=== PATIENT | male | born 1990 | race Caucasian/White ===

== ENCOUNTER 2017-02-23 21:11 | Emergency (ER) | payer BC ==
[~2017-02-23] VITALS: Ht 182.9 cm; Wt 126.0 kg
[2017-02-23 21:42] LABS: HEMATOCRIT 43.3 % (38.0-50.0); MCH 29.5 PG (29.0-34.0); MCHC 35.6 G/DL (30.0-36.0); MEAN PLAT.VOLUME 9.8 uM^3 (9.0-12.4); PLATELET COUNT 212 K/uL (156-360); RBC DIS.WIDTH-CV 12.2 % (11.8-14.6); RED BLOOD COUNT 5.22 M/uL (4.00-5.50); WHITE BLOOD COUNT 6.5 K/uL (4.1-10.2)
[2017-02-23 21:51] LABS: CHLORIDE 106 mEq/L (99-109); POTASSIUM 4.1 mEq/L (3.7-5.4); SODIUM 141 mEq/L (136-147)
[2017-02-23 21:52] LABS: GLUCOSE 135 mg/dL (70-99)
[2017-02-23 21:54] LABS: ANION GAP 12 MEQ/L (2-14)
[2017-02-23 21:56] LABS: GFR ESTIMATE (CALCULATED) > 59 mL/min/
[2017-02-23 21:57] LABS: UREA NITROGEN (BUN) 18 mg/dL (9-23)
[2017-02-23 22:02] LABS: TROP-I INTERPRETATION NEGATIVE; TROPONIN-I < 0.01 ng/mL (0.0-0.30)
[2017-02-23 22:58] VITALS: BP 129/95
== END 2017-02-23 22:59 | disposition home or self-care (01) ==
LOC: EME 21:11
DX: R03.0 Elevated blood-pressure reading, without diagnosis of hypertension (principal); R51 Headache
CPT/HCPCS: 71020; 80048; 84484; 85027; 93005; 99281; 99284